=== PATIENT | female | born 1970 | race Two or more races ===

== ENCOUNTER → 2019-01-02 | Outpatient (CLI) | payer OTHER | LOC: FIMAGING 07:42 | PROVIDERS: ATTEND Surgery | DX: K44.9 Diaphragmatic hernia without obstruction or gangrene (principal) ==

== ENCOUNTER 2019-01-06 08:52 | Observation (INO) | payer OTHER ==
[2019-01-06] MEDS ORDERED: cefOXitin SODIUM 2 GM in NS 100 ML IV ONE (11:42)
[2019-01-06] MEDS ORDERED: LR 1,000 ML IV ONE (11:43)
--- NOTE | 2019-01-06 11:48 | PDHPUP ---
History & Physical Update H&P update statement: This history and physical update is based on an assessment of the patient which was completed after admission or registration (within 24 hours), but prior to the surgery/procedure. H&P update: H&P reviewed & patient examined, no change in patient's condition since H&P completed
--- NOTE | 2019-01-06 11:50 | POSTOPPROG ---
Post Op Note Date of Operation: 01/06/19 Surgeon: Ventura David Auriculotherapist: Abbey Whalen Anesthesiologist: Rl Reed Anesthesia: GET(General Endotracheal) Pre-op Diagnosis: CVA, TIA, R critical carotid stenosis Post-op Diagnosis: same Procedure: R CEA c EEG monitring and patch closure Findings: good back flow, no eeg changes, tight focal calcified plaque Inf/Abcess present in the surg proc area at time of surgery?: No EBL: Minimal Complications: none Bowel Protocol: N/A Clean Closure Performed: N/A Specimen(s): plaque and cervical nodes to pathology
[2019-01-06] MEDS ORDERED: MIDAZOLAM 2 MG/2 ML VIAL IVP ONE (12:13)
--- NOTE | 2019-01-06 12:14 | PDANEPAE ---
ANE Past Medical History - Cardiovascular History Hx Hypertension: No Hx Arrhythmias: No Hx Chest Pain: No Hx Coronary Artery / Peripheral Vascular Disease: No Hx CHF / Valvular Disease: No Hx Palpitations: No - Pulmonary History Hx COPD: No Hx Asthma/Reactive Airway Disease: No Hx Recent Upper Respiratory Infection: No Hx Oxygen in Use at Home: No Hx Sleep Apnea: No Sleep Apnea Screening Result - Last Documented: Negative - Neurologic History Hx Cerebrovascular Accident: No Hx Seizures: No Hx Dementia: No - Endocrine History Hx Diabetes: No - Renal History Hx Renal Disorders: No - Liver History Hx Hepatic Disorders: No - Neurological & Psychiatric Hx Hx Neurological and Psychiatric Disorders: No - Cancer History Hx Cancer: No - Congenital Disorder History Hx Congenital Disorders: No - GI History Hx Gastrointestinal Disorders: Yes Gastrointestinal History Comment: acid reflux. large hiatel hernia - Other Health History Other Health History: none - Chronic Pain History Chronic Pain: No - Surgical History Prior Surgeries: upper and lower endoscopies ANE Review of Systems Review of Systems: - Exercise capacity METS (RN): 4 METS ANE Patient History - Allergies Allergies/Adverse Reactions: No Known Allergies Allergy (Verified 01/02/19 18:04) - Home Medications Home Medications: Gi Cocktail 01/02/19 [Last Taken Unknown] Herbals/Supplements -Info Only 01/02/19 [Last Taken 01/01/19] Hyoscyamine Oral Liquid 01/02/19 [Last Taken 01/05/19] Pantoprazole Sodium 01/02/19 [Last Taken 01/03/19] Spironolactone 01/02/19 [Last Taken 01/05/19] Sucralfate 01/02/19 [Last Taken Unknown] Topiramate 01/02/19 [Last Taken 01/05/19] - NPO status NPO Since - Liquids (Date): 01/06/19 NPO Since - Liquids (Time): 10:30 NPO Since - Solids (Date): 01/05/19 NPO Since - Solids (Time): 16:00 - Smoking Hx Smoking Status: Former smoker - Family Anes Hx Family Hx Anesthesia Complications: none ANE Labs/Vital Signs - Vital Signs Blood Pressure: 116/86 Heart Rate: 77 Respiratory Rate: 20 O2 Sat (%): 98 Height: 152.4 cm Weight: 97.522 kg ANE Physical Exam - Airway Neck exam: decreased ROM Mallampati Score: Class 3 Mouth exam: normal dental/mouth exam - Pulmonary Pulmonary: no respiratory distress - ASA Status ASA Status: III ANE Anesthesia Plan Anesthesia Plan: general endotracheal anesthesia
[2019-01-06] MEDS ORDERED: HEPARIN 1000 UNIT/1 ML MDV ONE (12:17)
[2019-01-06] MEDS ORDERED: BUPIVACAINE 0.5% 30 ML SDV ONE (12:17)
[2019-01-06] MEDS ORDERED: DEXAMETHASONE 4 MG/ML VIAL ONE (12:32)
[2019-01-06] MEDS ORDERED: PROPOFOL 200 MG/20 ML VIAL ONE (12:32)
[2019-01-06] MEDS ORDERED: LIDOCAINE 2% 100 MG/5 ML SYR ONE (12:32)
[2019-01-06] MEDS ORDERED: ROCURONIUM 100 MG/10 ML VIAL ONE (12:32)
[2019-01-06] MEDS ORDERED: ONDANSETRON 4 MG/2 ML VIAL ONE (12:32)
[2019-01-06] MEDS ORDERED: fentaNYL 100 MCG/2 ML INJ ONE ×4 (12:32→14:40)
[2019-01-06] MEDS: ceFAZolin 1 GM/5 ML SYR ONE ×2 (12:47→13:48)
[2019-01-06] MEDS ORDERED: ALBUTEROL 3 ML DEYVIAL IH PRN (13:29)
[2019-01-06] MEDS ORDERED: ONDANSETRON 4 MG/2 ML VIAL IVP PRN ×2 (13:29→14:28)
[2019-01-06] MEDS ORDERED: NALOXONE HCL 0.4 MG/ML INJ IVP PRN ×2 (13:29)
[2019-01-06] MEDS ORDERED: fentaNYL 100 MCG/2 ML INJ IVP PRN (13:29)
[2019-01-06] MEDS ORDERED: LABETALOL HCL 5 MG/ML 20 ML MDV ONE (13:35)
[2019-01-06] MEDS ORDERED: NEOSTIGMINE METHYLSULFATE 10 MG/10 ML MDV ONE (14:10)
[2019-01-06] MEDS ORDERED: GLYCOPYRROLATE 0.2 MG/1 ML VIAL ONE ×2 (14:10)
--- NOTE | 2019-01-06 14:26 | POSTOPPROG ---
Post Op Note Date of Operation: 01/06/19 Surgeon: Ventura David Blasting Helper: Abbey Whalen Anesthesiologist: Rl Reed Anesthesia: GET(General Endotracheal) Pre-op Diagnosis: GERD, hiatal hernia Post-op Diagnosis: same Procedure: lap hiatal hernia repair c Christin fundoplication Findings: medium hiatal hernia, about 15% of stomach in chest Inf/Abcess present in the surg proc area at time of surgery?: No EBL: Minimal Complications: none Bowel Protocol: N/A Clean Closure Performed: N/A Specimen(s): none
[2019-01-06] MEDS ORDERED: OXYCODONE/APAP 5/325 TAB PO PRN (14:28)
--- NOTE | 2019-01-06 14:30 | POSTANESTH ---
Post Anesthetic Evaluation Cardiovascular Status: Similar to Pre-Op Cond Respiratory Status: Similar to Pre-op Cond. Level of Consciousness/Mental Status: Can Participate in Eval, Mildly Sleepy, Arousable Pain Control: Adequate, Prn Tx Ordered Nausea/Vomiting Control: Adequate, Prn Tx Ordered Complications Possibly Related to Anesthesia: None Noted
[2019-01-06] MEDS ORDERED: HYDROmorphONE/DILAUDID 1 MG/ML INJ ONE (14:34)
[2019-01-06] MEDS: HYDROmorphONE/DILAUDID 1 MG/ML INJ IVP PRN ×2 (14:37→15:14)
[2019-01-06] MEDS ORDERED: PROMETHAZINE HCL 25 MG/ML INJ ONE (14:51)
[2019-01-06] MEDS ORDERED: HYDROmorphONE/DILAUDID 1 MG/ML INJ IVP PRN (17:06)
[2019-01-06] MEDS ORDERED: HYDROCODONE/APAP 5/325 TAB PO PRN (17:14)
[2019-01-06] MEDS: NS 1,000 ML IV SCH (17:37)
[2019-01-06] MEDS: KETOROLAC 15 MG/1 ML SDV IVP PRN (19:44)
[2019-01-06] MEDS: DOCUSATE SODIUM 100 MG CAP PO SCH (20:15)
[2019-01-07] MEDS: NS 1,000 ML IV SCH (03:25)
[2019-01-07] MEDS: KETOROLAC 15 MG/1 ML SDV IVP PRN ×2 (06:11→12:13)
--- NOTE | 2019-01-07 08:28 | GOP ---
[f rep st] OPERATIVE REPORT DATE OF OPERATION: 01/06/2019 SURGEON: Ventura David MD [employer] CONSULTANT: Abbey Whalen PA-C ANESTHESIA: General endotracheal. ANESTHESIOLOGIST: Malcolm Reed MD PREOPERATIVE DIAGNOSIS: 1. Gastroesophageal reflux disease. 2. Hiatal hernia. POSTOPERATIVE DIAGNOSIS: 1. Gastroesophageal reflux disease. 2. Hiatal hernia. PROCEDURE PERFORMED: Laparoscopic Christin fundoplication. FINDINGS: The patient was found to have a very small hiatal hernia with 10% to 15% of the stomach in the chest. ESTIMATED BLOOD LOSS: Negligible DESCRIPTION OF PROCEDURE: The patient was taken to the operating room where she received satisfactor y general endotracheal anesthesia by Dr. Reed. She was placed in the supine position in a split leg fashion, prepped and draped in the usual sterile fashion. A periumbilical incision was made. A Veress needle inserted. Pneumoperitoneum was established. Trocar was introduced. Laparoscope intro duced. Good visualization was obtained. Four other trocars were placed in the upper abdomen under d irect vision. The left lateral segment of the liver was elevated up with a table retractor. The hia tus was then exposed with the Harmonic scalpel. Both marlen were dissected free. The esophagus was di ssected free circumferentially and elevated up away from the posterior marlen. The esophagus was quite mobile, and the stomach was easily reduced back into the abdomen. The marlen were approximated with 0 Ethibond interrupted sutures, this was done over a 52 bougie dilator. The greater curvature of the stomach was mobilized by Harmonic scalpel, and a posterior fundoplication wrap was passed around the esophagus through a retroesophageal tunnel, anterior complete fundoplication was then created with in terrupted 0 Ethibond sutures securing the anterior wall of the stomach to the anterior wall of the es ophagus and to the fundoplication wrap. Bougie dilator was removed. Hemostasis was assured. Trocar s were then removed under direct vision. Trocar sites were closed with 4-0 Monocryl subcuticular sti tch for the skin. All layers infiltrated with 0.5% Marcaine. COMPLICATIONS: None. DISPOSITION: Taken to recovery room in good condition. Copy requested to: Dr. Abbey Archuleta /[id number]/MODL
[2019-01-07] MEDS ORDERED: FAMOTIDINE 20 MG/NACL 50 ML IV SCH (09:00)
[2019-01-07] MEDS ORDERED: PANTOPRAZOLE SODIUM 40 MG VIAL IVP SCH (09:00)
[2019-01-07] MEDS: DOCUSATE SODIUM 100 MG CAP PO SCH (09:14)
--- NOTE | 2019-01-07 09:50 | SOAPPROG ---
SOAP Progress Note Assessment/Plan: Assessment/plan: 48 y/o F s/p lap hiatal hernia repair and Christin fundoplication POD #1. Doing well. Pain controlled. No flatus or BM yet. Advance to clear liquids today. Dispo: possibly home today. S: Doing very well. Only c/o incisional pain. Epigastric pain prior to surgery seems to have resolved. O: Alert Afebrile RRR No increased WOB Abdomen: soft, attp, incisions intact, +BS 01/07/19 09:47 Objective: Vital Signs Temp Pulse Resp BP Pulse Ox 36.6 C 64 16 112/79 95 01/07/19 08:00 01/07/19 08:00 01/07/19 08:00 01/07/19 08:00 01/07/19 08:00 Laboratory Results 01/07/19 05:00 01/07/19 05:00 01/06/19 01/07/19 01/08/19 05:59 05:59 05:59 Intake Total 2350 Output Total 770 Balance 1580 ICD10 Worksheet Patient Problems: Problems Problem Status Onset Hiatal hernia Acute - ICD10 Problem Qualifiers (1) Hiatal hernia
[2019-01-07] MEDS ORDERED: MBX SOLN 30 ML BOTTLE PO PRN (09:55)
[2019-01-07] MEDS ORDERED: HYOSCYAMINE SULFATE 0.125 MG TAB PO PRN (09:55)
[2019-01-07] MEDS ORDERED: SPIRONOLACTONE 100 MG TAB PO SCH (10:00)
[2019-01-07] MEDS ORDERED: PANTOPRAZOLE SODIUM 40 MG TAB PO SCH (10:00)
[2019-01-07] MEDS ORDERED: TOPIRAMATE 100 MG TAB PO SCH (10:00)
[2019-01-07] MEDS: SUCRALFATE 1 GM TAB PO SCH ×2 (11:37→17:37)
[2019-01-07] MEDS ORDERED: METOCLOPRAMIDE 10 MG/2 ML VIAL IVP SCH (12:00)
--- NOTE | 2019-01-07 15:51 | ASMTCMCOM ---
CM Note CM Note Notes: CM spoke with pt in the room today. Pt lives with her boyfriend and was admitted for hiatal hernia repair. Pt likely to dc today, though no DC orders aparent yet. No therapies ordered and pt is comfortable discharging home independently with support from boyfriend. CM available should needs change. D/C Plan: Independent Date Signed: 01/07/2019 03:51 PM Electronically Signed By:Dawn Peter RN
[2019-01-07 16:15] VITALS: BP 125/87
[2019-01-08] MEDS ORDERED: ENOXAPARIN 40 MG/0.4 ML SYR SC SCH (09:00)
--- NOTE | 2019-01-12 13:55 | GDS ---
[f rep st] DISCHARGE SUMMARY DISCHARGE DIAGNOSES: 1. Gastroesophageal reflux disease. 2. Hiatal hernia. PROCEDURES: Laparoscopic Christin fundoplication with hiatal hernia repair. INTRAOPERATIVE FINDINGS: Patient was found to have a very small hiatal hernia with 10% to 15% of the stomach in the chest. HOSPITAL COURSE: The patient is a 48-year-old female with gastroesophageal reflux disease and a smal l hiatal hernia who underwent surgery as above. The procedures were uncomplicated and she tolerated them well. The patient's postoperative course was uneventful. Her diet was advanced. She began to pass flatus and her diet was advanced further. She tolerated this well and ultimately was discharged home in sta ble condition the evening of postoperative day 1 with plans for outpatient followup. Limitations carmen morrow. /[id number]/MODL
== END 2019-01-07 17:50 | disposition home or self-care (01) ==
LOC: F3E 11:19
PROVIDERS: ADMIT Surgery; ATTEND Surgery
DX: K21.9 Gastro-esophageal reflux disease without esophagitis (principal); K44.9 Diaphragmatic hernia without obstruction or gangrene
CPT/HCPCS: 43281; 71045; G0378; J0694; J1100; J1170; J1885; J2001; J2250; J2405; J2550; J2704; J2765; J3010